=== PATIENT | female | born 1935 | race Asian ===

== ENCOUNTER 2016-10-17 08:58 | Emergency (ER) | payer OTHER ==
[~2016-10-17] VITALS: Ht 170.2 cm; Wt 44.5 kg
[~2016-10-17 08:58] MED LIST: ACET5TAB36 PO; ALBU2SYP3 INH; AMLO2.5T PO; ASA LOW STR81 MG PO; ASPIRIN ADULT L81 MG OR; BENTYL10 MG PO; BISACODYL LAXAT10 MG RE; CADUET5 MG/10 MG OR; CHANTIX STARTIN0.5 & PO; CIPRO500 MG PO; DULCOLAX SS100 MG OR; ENOX30IN2 SC; FISH OIL1000 M1 OR; FLUTMIS6 INH; HM MILK OF400 MG/5 M OR; LEVOTHROID75 MCG OR; LISINOP/HCTZ1 TA2 PO; LORTAB 5-325 MG1 TAB PO; MEGE40SU PO; MEGE40TA32 PO; METF500T PO; MULTI VITAMIN/MINERA PO; NEXIUM40 M1 PO; OXYC5TAB53 PO; PROAIR HFA IN; PROVENTIL IN; SYNTHROID137 MCG PO; TRAM50TA PO; VIT C/VIT E OR; VITAMIN C + PO; VITAMIN D1000 UNIT PO; VITAMIN D35000 UNI3 PO
[2016-10-17 09:47] LABS: PLATELET COUNT 463 K/uL (152-353)
[2016-10-17 10:25] LABS: POTASSIUM 3.6 mmol/L (3.6-5.2); SODIUM 128 mmol/L (136-145)
[2016-10-17 12:53] VITALS: BP 128/72; TEMP 98.6
== END 2016-10-17 13:39 | disposition short-term general hospital (02) ==
LOC: ED 08:58
PROVIDERS: Emergency Medicine
DX: K56.69 Other intestinal obstruction (principal); N39.0 Urinary tract infection, site not specified
CPT/HCPCS: 36415; 80053; 81000; 82150; 82550; 83605; 83690; 84484; 85027; 87077; 87086; 87088; 87186; 96361; 96365; 96375; 96376; 99285; J2270; J2543; Q9963

== ENCOUNTER 2016-11-07 11:59 | Inpatient (IN) | payer OTHER ==
[~2016-11-07] VITALS: Ht 170.2 cm; Wt 44.5 kg
[2016-11-07 12:35] VITALS: BP 151/72; TEMP 98.2
[2016-11-07 13:24] LABS: PLATELET COUNT 217 K/uL (152-353)
[2016-11-07 15:52] LABS: POTASSIUM 3.8 mmol/L (3.6-5.2); SODIUM 139 mmol/L (136-145)
[2016-11-07 16:13] VITALS: BP 154/77
[2016-11-07] MEDS ORDERED: ASPIR-8181 MG OR (16:53)
[2016-11-07 17:00] VITALS: BP 139/77; TEMP 98.2; Ht 170.2 cm; Wt 44.5 kg
[2016-11-07 20:00] VITALS: BP 134/68; TEMP 97.9
[2016-11-08] VITALS (7 sets, daily range): BP systolic 100–143; BP diastolic 50–67; TEMP 97.3–98.6
[2016-11-08 05:10] LABS: PLATELET COUNT 200 K/uL (152-353)
[2016-11-08 12:30] LABS: POTASSIUM 3.5 mmol/L (3.6-5.2); SODIUM 135.4 mmol/L (136-145)
[2016-11-09 04:00] VITALS: BP 113/65; TEMP 98.4
[2016-11-09 07:14] LABS: POTASSIUM 3.2 mmol/L (3.6-5.2)
[2016-11-09 07:20] LABS: PLATELET COUNT 186 K/uL (152-353)
[2016-11-09 08:00] VITALS: BP 133/67; TEMP 97.8
[2016-11-09 12:00] VITALS: BP 126/66; TEMP 98.7
[2016-11-09 16:00] VITALS: BP 141/59; TEMP 98.6
[2016-11-09 20:00] VITALS: BP 128/71; TEMP 97.8
[2016-11-10] VITALS: BP 147/63; TEMP 97.9
[2016-11-10 04:00] VITALS: BP 125/59; TEMP 98.1
[2016-11-10 05:04] LABS: PLATELET COUNT 177 K/uL (152-353)
[2016-11-10 05:15] LABS: POTASSIUM 3.6 mmol/L (3.6-5.2); SODIUM 140 mmol/L (136-145)
[2016-11-10 08:00] VITALS: BP 186/85; TEMP 99.6
== END 2016-11-10 12:15 | disposition home or self-care (01) | DRG 313 ==
LOC: ED 11:59 → MED/SURG 15:30
PROVIDERS: Emergency Medicine
DX: R07.89 Other chest pain (principal); J43.9 Emphysema, unspecified; E11.9 Type 2 diabetes mellitus without complications; E03.8 Other specified hypothyroidism; R00.1 Bradycardia, unspecified
CPT/HCPCS: 36415; 80048; 80053; 81000; 82550; 82948; 83735; 84484; 85027; 85379; 93005; 94760; 96365; 96366; 96372; 99283; J1650; J1885; Q9963

== ENCOUNTER 2017-03-20 10:35 | Day surgery (SDC) | payer OTHER ==
[~2017-03-20 10:35] MED LIST changes: +ASPIR-8181 MG OR
== END 2017-03-20 13:35 | disposition home or self-care (01) ==
LOC: OR 10:35
PROC: 08RJ3JZ Replacement of Right Lens with Synthetic Substitute, Percutaneous Approach (ICD-10-PCS; principal; 2017-03-20)
DX: H25.811 Combined forms of age-related cataract, right eye (principal)
CPT/HCPCS: 66984; J0171; V2632

== ENCOUNTER 2017-04-26 09:00 | Outpatient (CLI) | payer OTHER | END 2017-04-26 10:00 | disposition home or self-care (01) | LOC: US 09:00 | DX: R22.1 Localized swelling, mass and lump, neck (principal) ==

== ENCOUNTER 2017-05-08 09:12 | Day surgery (SDC) | payer OTHER | END 2017-05-08 12:40 | disposition home or self-care (01) | LOC: OR 09:12 | PROC: 08RK3JZ Replacement of Left Lens with Synthetic Substitute, Percutaneous Approach (ICD-10-PCS; principal; 2017-05-08) | DX: H25.812 Combined forms of age-related cataract, left eye (principal) | CPT/HCPCS: 66984; J0171; V2632 ==

== ENCOUNTER 2017-08-02 10:37 | Day surgery (SDC) | payer OTHER | END 2017-08-02 14:02 | disposition home or self-care (01) | LOC: OR 10:37 | PROC: 0DBE8ZZ Excision of Large Intestine, Via Natural or Artificial Opening Endoscopic (ICD-10-PCS; principal; 2017-08-02) | DX: K64.8 Other hemorrhoids (principal); R19.4 Change in bowel habit; R19.7 Diarrhea, unspecified; D50.9 Iron deficiency anemia, unspecified; Z86.010 Personal history of colon polyps | CPT/HCPCS: J2001; J2704; J3010 ==

== ENCOUNTER 2017-08-11 07:36 | Inpatient (IN) | payer OTHER ==
[2017-08-11] VITALS (22 sets, daily range): BP systolic 11–116; BP diastolic 48–98; TEMP 97.6–98; Ht 170.2 cm; Wt 56.7 kg
[~2017-08-11] VITALS: Ht 170.2 cm; Wt 56.7 kg
[2017-08-11 08:21] LABS: PLATELET COUNT 254 K/uL (152-353)
[2017-08-11 08:23] LABS: POTASSIUM 4.8 mmol/L (3.6-5.2)
[2017-08-12] VITALS (23 sets, daily range): BP systolic 83–112; BP diastolic 51–69; TEMP 97.8–98.7
[2017-08-12 06:19] LABS: PLATELET COUNT 207 K/uL (152-353)
[2017-08-12 06:29] LABS: POTASSIUM 5.5 mmol/L (3.6-5.2)
[2017-08-12] MEDS ORDERED: DOC-Q-LAX1 TAB PO (09:30)
[2017-08-12] MEDS ORDERED: FERROUS SULF325 MG PO (09:31)
[2017-08-12] MEDS ORDERED: METFTAB PO (09:32)
[2017-08-12] MEDS ORDERED: K-TAB20 MEQ PO (09:33)
[2017-08-12] MEDS ORDERED: FURO40TA93 PO (09:34)
[2017-08-12] MEDS ORDERED: FISH OIL PO (09:34)
[2017-08-12] MEDS ORDERED: VITAMIN D1000 UNIT PO (09:36)
[2017-08-12] MEDS ORDERED: POLY GLYCOL3350 MG PO (09:39)
[2017-08-12] MEDS ORDERED: BREO ELLIPTA 101 INH INH (11:55)
[2017-08-12] MEDS ORDERED: VENTOLIN HFA 90MCG INH (11:59)
[2017-08-13] VITALS (22 sets, daily range): BP systolic 90–133; BP diastolic 57–95; TEMP 98–99.1
[2017-08-13 06:12] LABS: PLATELET COUNT 198 K/uL (152-353)
[2017-08-13 06:17] LABS: POTASSIUM 4.9 mmol/L (3.6-5.2)
[2017-08-14] VITALS (14 sets, daily range): BP systolic 80–161; BP diastolic 48–97; TEMP 98–98.5
[2017-08-14 06:23] LABS: PLATELET COUNT 193 K/uL (152-353)
[2017-08-14 06:47] LABS: POTASSIUM 4.7 mmol/L (3.6-5.2)
[2017-08-14] MEDS ORDERED: BREO ELLIPTA 101 INH IN (10:43)
[2017-08-15] VITALS (18 sets, daily range): BP systolic 129–168; BP diastolic 74–101; TEMP 97.5–99
[2017-08-15 09:05] LABS: PLATELET COUNT 176 K/uL (152-353)
[2017-08-15 09:11] LABS: POTASSIUM 3.7 mmol/L (3.6-5.2)
[2017-08-16] VITALS (28 sets, daily range): BP systolic 79–147; BP diastolic 52–87; TEMP 98.6–98.9
[2017-08-16 08:43] LABS: PLATELET COUNT 164 K/uL (152-353)
[2017-08-16 08:45] LABS: POTASSIUM 3.1 mmol/L (3.6-5.2)
[2017-08-17] VITALS (17 sets, daily range): BP systolic 89–150; BP diastolic 50–109; TEMP 98.6–99
[2017-08-17 06:28] LABS: PLATELET COUNT 147 K/uL (152-353)
[2017-08-17 06:36] LABS: POTASSIUM 4.3 mmol/L (3.6-5.2)
[2017-08-18 01:45] VITALS: BP 138/100
[2017-08-18 03:45] VITALS: BP 119/82; TEMP 98
[2017-08-18 07:30] VITALS: BP 150/76; TEMP 98.1
[2017-08-18 07:54] LABS: PLATELET COUNT 173 K/uL (152-353)
[2017-08-18 07:58] LABS: POTASSIUM 2.7 mmol/L (3.6-5.2)
[2017-08-18 09:30] VITALS: BP 122/71
[2017-08-18 11:30] VITALS: BP 128/90
[2017-08-18 13:30] VITALS: BP 122/79; TEMP 98.2
[2017-08-19 08:00] VITALS: BP 93/57; TEMP 97.7
[2017-08-19 12:00] VITALS: BP 77/40; TEMP 99.1
== END 2017-08-19 18:00 | disposition expired | DRG 388 ==
LOC: ED 07:36 → ICU 12:00 → MED/SURG 08-18 16:25
PROVIDERS: Internal Medicine Cardiovascular Disease; Specialist; ADMIT Emergency Medicine
PROC: 30233N1 Transfusion of Nonautologous Red Blood Cells into Peripheral Vein, Percutaneous Approach (ICD-10-PCS; principal; 2017-08-14)
PROC: 30233N1 Transfusion of Nonautologous Red Blood Cells into Peripheral Vein, Percutaneous Approach (ICD-10-PCS; 2017-08-15)
DX: K56.690 Other partial intestinal obstruction (principal); J18.8 Other pneumonia, unspecified organism; E46 Unspecified protein-calorie malnutrition; I13.2 Hypertensive heart and chronic kidney disease with heart failure and with stage 5 chronic kidney disease, or end stage renal disease; N18.5 Chronic kidney disease, stage 5; I50.30 Unspecified diastolic (congestive) heart failure; I95.89 Other hypotension; J44.9 Chronic obstructive pulmonary disease, unspecified; D53.9 Nutritional anemia, unspecified; E83.42 Hypomagnesemia; E87.5 Hyperkalemia; K21.9 Gastro-esophageal reflux disease without esophagitis; N28.9 Disorder of kidney and ureter, unspecified; E11.22 Type 2 diabetes mellitus with diabetic chronic kidney disease
CPT/HCPCS: 36415; 36430; 36591; 80053; 81000; 82150; 82550; 82570; 82607; 82728; 82746; 82962; 83540; 83550; 83605; 83690; 83735; 84100; 84300; 84443; 84466; 84484; 84540; 85027; 85044; 85379; 86850; 86900; 86901; 86922; 87040; 94640; 94664; 94760; 96372; 96374; 96375; 96376; 99285; J0500; J1630; J1650; J1720; J1940; J2175; J2270; J2405; J3260; J3475; J3480; J3486; J3490; P9016